=== PATIENT | male | born 1955 | race Caucasian/White ===

== ENCOUNTER 2019-09-11 12:57 | Observation (INO) | payer BC ==
[~2019-09-11] VITALS: Ht 182.9 cm; Wt 74.1 kg
--- NOTE | 2019-09-11 13:08 | NUR ---
AMB TO ROOM 9 WITH STEADY GAIT.
[2019-09-11 13:47] LABS: HEMATOCRIT 43.3 % (39.0-50.0); HEMOGLOBIN 14.8 g/dl (14.0-18.0); IMMATURE GRANULOCYTES 0.2 % (0.0-5.0); MEAN CELL VOLUME 96.2 fL CALC (80.0-100.0); MEAN CORPUSCULAR HGB 32.9 pG CALC (26.0-32.0); MEAN CORPUSCULAR HGB CONC 34.2 g/dL CAL (32.0-36.0); NEUT# 7.63 thou/uL (1.82-7.42); RED BLOOD COUNT 4.5 mill/uL (4.70-6.10); RED CELL DISTRI WIDTH 12.3 % (11.5-15.5)
[2019-09-11 13:54] LABS: ALBUMIN 4.4 g/dL (3.2-5.0); ALKALINE PHOSPHATASE 86 u/l (38-126); AMYLASE 31 u/l (30-110); ANION GAP 10 (6-22 (CALC)); BILIRUBIN, TOTAL 0.7 mg/dL (0.0-1.4); BUN 13 mg/dL (8-23); BUN/CREATININE RATIO 18 (12-20 (CALC)); CARBON DIOXIDE 28 mmol/l (22-30); CHLORIDE 101 mmol/l (95-108); CREATININE 0.7 mg/dL (0.7-1.3); GFR > 60 ML/MIN (>=60 (CALC)); GFR FOR AFR.AMER. > 60 ML/MIN (>=60 (CALC)); LIPASE 42 u/l (23-300); POTASSIUM 3.9 mmol/l (3.5-5.1); SGOT/AST 21 u/l (19-48); SODIUM 135 mmol/l (137-146); TOTAL PROTEIN 6.9 g/dL (6.3-8.2)
--- NOTE | 2019-09-11 14:00 | NUR ---
THE PATIENT IS WAITING FOR RESULTS.
[2019-09-11 14:08] LABS: URINE BILIRUBIN - DIPSTICK NEGATIVE (NEGATIVE); URINE BLOOD DIPSTICK SMALL (NEGATIVE); URINE COLOR YELLOW; URINE GLUCOSE - DIPSTICK NEGATIVE (NEGATIVE); URINE KETONE NEGATIVE (NEGATIVE); URINE LEUK ESTERASE NEGATIVE (NEGATIVE); URINE NITRITE - DIPSTICK NEGATIVE (Negative); URINE PH 5.5 (4.5-8.0); URINE PROTEIN - DIPSTICK NEGATIVE (NEG-TRACE); URINE UROBILINOGEN - DIPSTICK 0.2 E.U./dL (0.2)
[2019-09-11 14:09] LABS: URINE SQUAMOUS EPITHELIAL CELL FEW EPI/hpf (0-FEW)
--- NOTE | 2019-09-11 15:32 | NUR ---
THE PATIENT IS WAITING FOR CT SCAN RESULTS.
--- NOTE | 2019-09-11 15:55 | NUR ---
DOCTOR INFORMED OF TEMP.
--- NOTE | 2019-09-11 16:30 | NUR ---
PER ER NURSE DR DESAI SPOKE WITH DR ROBLES.
--- NOTE | 2019-09-11 16:35 | NUR ---
REPORT CALLED TO THE FLOOR AND GIVEN TO NURSE FOR ROOM 272
--- NOTE | 2019-09-11 16:48 | NUR ---
PT ARRIVED VIA WC WITH NO DISTRESS NOTED. IV SITE IS FREE FROM REDNESS OR EDEMA. SPOUSE IN THE ROOM. WILL BRING A LIST OF HOME MEDICATIONS.
[2019-09-11 17:01] VITALS: BP 118/76
--- NOTE | 2019-09-11 17:10 | NUR ---
ASSESSMENT IS COMPLTED: IV SITE IS FREE FROM REDNESS OR EDEMA. HR IS REG,PULSES ARE STRONG X4, ABD IS SOFT WITH ACTIVE BS. BREATH SOUNDS ARE CLEAR BILATERALLY. CONTINEU TO [place]E AND MONITOR.
--- NOTE | 2019-09-11 17:30 | NUR ---
PT WAS EXPLAINED ABOUT THE NPO STATUS AND DR ROBLES WILL SEE HIM TOMORROW AND EXPLAIN WHAT IS GOING TO BE DONE. VERBALIZED UNDERSTANDING.
--- NOTE | 2019-09-11 17:35 | NUR ---
FAMILY INQUIRED ABOUT A NICOTINE PATCH. PT STATES" I WILL BE OK".
[2019-09-11 19:10] VITALS: BP 110/66
--- NOTE | 2019-09-11 20:27 | NUR ---
PT MEDICATED ORDERS PROVIDE AND ASSESSMENT COMPLETED AT THIS TIME. PT REPORTS MILD TENDERNESS/PAIN TO LLQ, DENIES NEED FOR PAIN MEDICATION AT THIS TIME. REPORTS POSSIBLE WANTING IT LATER WHEN HE IS TRYING TO SLEEP. POC/NPO STATUS DISCUSSED WITH PT AT THIS TIME, VERBALIZES UNDERSTANDING. CALL LIGHT IN PLACE. 800CC CLEAR YELLOW URINE IN URINAL AT THIS TIME.
--- NOTE | 2019-09-11 23:34 | NUR ---
PT MEDICATED FOR PAIN AND W/IV ANTIBIOTIC THERAPY. ICECHIPS PROVIDED PER REQUEST. NO S/O DISTRESS NOTED AT THIS TIME. WILL CONTINUE TO MONITOR.
[2019-09-12 03:10] VITALS: BP 128/71
--- NOTE | 2019-09-12 05:15 | NUR ---
PT MEDICATED W/IV ANTIBIOTIC THERAPY AND IVF REPLENISHED AT THIS TIME. PT ASKING FOR ICECHIPS
--- NOTE | 2019-09-12 08:00 | NUR ---
BEDSIDE REPORT RECEIVED FROM KARI ASENCIO. PT REPORTS LLQ TENDERNESS, MUCH IMPROVED FROM PREVIOUS. PLAN OF CARE DISCUSSED. REPORTING OF CONCERNS ENCOURAGED. CALL LIGHT REVIEWED AND IN REACH. PT IS ALERT AND ORIENTED. NPO STATUS DISCUSSED, PT STATES UNDERSTANDING.
[2019-09-12 08:08] VITALS: BP 120/72
--- NOTE | 2019-09-12 09:30 | NUR ---
DR. ROBLES IN TO SEE PT. PLAN OF CARE UPDATED. CLEAR LIQUID DIET AND DIET ADVANCED EXPLAINED. PT STATES UNDERSTANDING.
[2019-09-12] MEDS ORDERED: MULTI VIT PO (10:16)
[2019-09-12] MEDS ORDERED: ATORVASTATIN CA10 MG PO (10:17)
[2019-09-12] MEDS ORDERED: AMOXICILLIN500 M2 PO (10:18)
[2019-09-12] MEDS ORDERED: LISINOPRIL20 MG PO (10:18)
--- NOTE | 2019-09-12 10:45 | NUR ---
DR. GARZA IN TO SEE PT. PLAN OF CARE UPDATED.
[2019-09-12 15:00] VITALS: BP 132/80
--- NOTE | 2019-09-12 15:00 | NUR ---
PT DENIES PAIN. REPORTING OF CONCERNS ENCOURAGED. PT TOLERATING CLEAR LIQUID DIET.
--- NOTE | 2019-09-12 17:57 | NUR ---
PT SITTING UPRIGHT IN BED. AT BEDSIDE. PT. DENIES PAIN AT THIS TIME. DINNER TRAY PRESENT. PT VOICES SATISFACTION. CALL LIGHT WITHIN REACH.
[2019-09-12 18:57] VITALS: BP 113/70
--- NOTE | 2019-09-12 19:00 | NUR ---
RECEIVED REPORT FROM NURSE LEAH PATIENT RESTING IN BED, WATCHING TV, BREATHING EVEN AND UNLABORE, CALL LIGHT AT REACH.
--- NOTE | 2019-09-12 21:00 | NUR ---
PATIENT ALERT ORIENTED AMBULATORY STEADY GAIT, WITH ONGOING IV OF NS @ 100CC/HR G 20 ON LAC LBM 09/10, DENIES N/V AND DENIES ABDOMINAL PAIN, C/O OF HEADACHE PRN TYLENOL GIVEN WILL REEVALUATE.
--- NOTE | 2019-09-13 00:15 | NUR ---
PATIENT APPEARS TO BE SLEEPING WITH EYES CLOSED, BREATHIING EVEN AND UNLABORED, CALL LIGHT AT REACH.
[2019-09-13 04:00] VITALS: BP 122/77
--- NOTE | 2019-09-13 04:47 | NUR ---
PATIENT APPEARS TO BE SLEEPING WITH EYES CLOSED, BREATHING EVEN AND UNLABORED CALL LIGHT AT [facility].
[2019-09-13 07:09] VITALS: BP 124/73
--- NOTE | 2019-09-13 07:31 | NUR ---
RECIEVED REPORT FROM TAMERA PIERCE UPON. PT RESTING IN SEMI FOWLERS POSITION UPON ENTERING ROOM. RESPIRATIONS ARE EVEN AND UNLABORED WITH NO SIGNS OF DISTRESS. PT DENIES ANY PAIN OR NEEDS AT THIS TIME. ALL SAFETY PRECAUTIONS IN PLACE WITH CALL LIGHT IN REACH. WILL CONTINUE TO MONITOR.
--- NOTE | 2019-09-13 09:20 | NUR ---
ASSESSMENT AND VITALS COMPLETED. BP 124/73, HR 65, O2 95% ON ROOM AIR. RESPIRATIONS ARE EVEN AND UNLABORED WITH NO SIGNS OF DISTRESS. LUNG SOUNDS ARE CLEAR. BOWEL SOUNDS ARE ACTIVE IN ALL QUADRANTS WITH NO TENDERNESS NOTED, LAST REPORTED BM 09/11/19. RADIAL AND PEDAL PULSES ARE STRONG WITH NORMAL CAPILLARY REFILL. SKIN IS WARM AND DRY WITH NO BREAK DOWN OR EDEMA. #20G IN LAC RUNNING NS @100 ORDERED, SITE APPEARS HEALTHY AND PATENT. PT IS A/O X3 AND AMBULATORY. PT DENIES ANY PAIN OR DISCOMFORTS AT THIS TIME. ALL SAFTEY PRECAUTIONS IN PLACE WITH CALL LIGHT IN REACH
[2019-09-13 09:21] VITALS: BP 124/73
[2019-09-13] MEDS ORDERED: METRONIDAZOL500 MG PO (10:25)
[2019-09-13] MEDS ORDERED: CIPROFLOXACN500 MG PO (10:25)
--- NOTE | 2019-09-13 12:10 | NUR ---
PT RESTING IN SEMI FOWLERS POSITION WATCHING TV. RESPIRATIONS ARE EVEN AND UNLABORED WITH NO SIGNS OF DISTRESS. PT DENIES ANY PAIN OR DISCOMFORTS AT THIS TIME. DISCHARGE ORDERES ARE INPLACE AT THIS TIME. PT INFORMED, PT VERBALIZED UNDERSTANDING. ALL SAFETY PRECAUTIONS REAMIN IN PLACE WITH CALL LIGHT IN REACH. WILL CONTINUE TO MONITOR
--- NOTE | 2019-09-13 14:19 | NUR ---
PT EDUCATED ON DSICHARGE INSTRUCTIONS AND NEW ANTIBIOTICS. PT VERBALIZED UNDERSTANDING. IV REMOVED AT THIS TIME WITH CATHATER STILL INTACT. PT TOLERATED WELL. AWAITING FOR SPOUSE FOR TRANSPORTATION AT THIS TIME. ALL SAFTEY PRECAUTIONS IN PLACE WITH CALL LIGHT IN REACH. WILL COTNINUE TO MONITOR
--- NOTE | 2019-09-13 14:50 | NUR ---
Discharge instructions given. Patient verbalizes understanding of same. Discharged in stable condition via Wheelchair to Home with spouse. All belongings sent with pt. PT LEFT FLOOR VIA WHEELCHAIR IN STABLE CONDITION ACCOMPAINED WITH AND SARA CHILDS. PT LEFT WITH DISCHARGE INSTRUCTIONS AND ALL BELONGINGS.
== END 2019-09-13 14:50 | disposition home or self-care (01) | DRG 392 ==
LOC: ED 12:57 → ED-I 15:30 → ED 15:52 → ED-I 15:53 → MS2 15:53
PROVIDERS: Emergency Medicine; ADMIT Internal Medicine; ATTEND Internal Medicine
DX: K57.20 Diverticulitis of large intestine with perforation and abscess without bleeding (principal); K65.4 Sclerosing mesenteritis; I10 Essential (primary) hypertension; E78.5 Hyperlipidemia, unspecified; F17.210 Nicotine dependence, cigarettes, uncomplicated; Z20.828 Contact with and (suspected) exposure to other viral communicable diseases
CPT/HCPCS: G0378; J1650; Q9967